=== PATIENT | male | born 1960 | race Two or more races ===

== ENCOUNTER 2018-06-18 18:41 | Inpatient (IN) | payer BC ==
[2018-06-18 20:23] VITALS: BMI 26.6
--- NOTE | 2018-06-18 22:34 | HP ---
CIWA Score Nausea/Vomitin-Mild Nausea/No Vomiting Muscle Tremors: 4-Moderate,w/Arms Extend Anxiety: 4-Mod. Anxious/Guarded Agitation: 1-Slight > Activity Paroxysmal Sweats: 1-Minimal Palms Moist Orientation: 0-Oriented Tacttile Disturbances: 0-None Auditory Disturbances: 0-None Visual Disturbances: 0-None Headache: 5-Severe CIWA-Ar Total Score: 16 - Admission Criteria OASAS Guidelines: Admission for Medically Managed Detox: Requires at least one of the followin. CIWA greater than 12 2. Seizures within the past 24 hours 3. Delirium tremens within the past 24 hours 4. Hallucinations within the past 24 hours 5. Acute intervention needed for co occurring medical disorder 6. Acute intervention needed for co occurring psychiatric disorder 7. Severe withdrawal that cannot be handled at a lower level of care (continued vomiting, continued diarrhea, abnormal vital signs) requiring intravenous medication and/or fluids 8. Admission ROS S - [facility] Chief Complaint: Alcohol withdrawal symptoms Allergies/Adverse Reactions: Allergies Allergy/AdvReac Type Severity Reaction Status Date / Time No Known Allergies Allergy Verified 06/18/18 21:02 History of Present Illness: 58 years old male with a long history of alcohol dependence is seeking admission to detox. This is his first admission to [facility]. He reports 1 year of sobriety. He reports history of depression and anxiety. He denies suicide attempt and suicidal ideation at this time. Exam Limitations: No Limitations - Ebola screening Have you traveled outside of the country in the last 21 days: No (N) Have you had contact with anyone from an Ebola affected area: No Have you been sick,other than usual withdrawal symptoms: No Do you have a fever: No - Review of Systems Constitutional: Chills, Malaise, Night Sweats, Changes in sleep EENT: reports: No Symptoms Reported Respiratory: reports: No Symptoms reported Cardiac: reports: No Symptoms Reported GI: reports: Poor Appetite, Poor Fluid Intake, Abdominal cramping : reports: No Symptoms Reported Musculoskeletal: reports: Back Pain, Joint Pain, Muscle Pain Integumentary: reports: Dryness, Flushing Neuro: reports: Headache, Tremors Endocrine: reports: No Symptoms Reported Hematology: reports: No Symptoms Reported Psychiatric: reports: Orientated x3, Agitated, Anxious, Depressed Other Systems: Reviewed and Negative Patient History - Patient Medical History Hx Asthma: No Hx Chronic Obstructive Pulmonary Disease (COPD): No Hx Cancer: No Hx Cardiac Disorders: No Hx Congestive Heart Failure: No Hx Hypertension: No Hx Hypercholesterolemia: No Hx Pacemaker: No HX Cerebrovascular Accident: No Hx Seizures: No Hx Dementia: No Hx Diabetes: No Hx Gastrointestinal Disorders: No Hx Genitourinary Disorders: No Hx Sexually Transmitted Disorders: No Hx Renal Disease (ESRD): No Hx Thyroid Disease: No Hx Human Immunodeficiency Virus (HIV): No (Never tested) Hx Hepatitis C: No Hx Depression: No Hx Suicide Attempt: No (Denies suicidal ideation at this tme) Hx Bipolar Disorder: No Hx Schizophrenia: No - Patient Surgical History Past Surgical History: No Hx Neurologic Surgery: No Hx Cataract Extraction: No Hx Cardiac Surgery: No Hx Lung Surgery: No Hx Breast Surgery: No Hx Breast Biopsy: No Hx Abdominal Surgery: No Hx Appendectomy: No Hx Cholecystectomy: No Hx Genitourinary Surgery: No Hx Section: No Hx Orthopedic Surgery: No Anesthesia Reaction: No - PPD History Previous Implant?: Yes Documented Results: Positive w/o proof PPD to be Administered?: Yes - Reproductive History Patient is a Female of Child Bearing Age (11 -55 yrs old): No (Male) - Smoking Cessation Smoking history: Current every day smoker Have you smoked in the past 12 months: No Aproximately how many cigarettes per day: 20 Hx Chewing Tobacco Use: No Initiated information on smoking cessation: Yes 'Breaking Loose' booklet given: 06/18/18 - Substance & Tx. History Hx Alcohol Use: Yes Hx Substance Use: No Substance Use Type: Alcohol Hx Substance [facility] - Substances Abused Alcohol Route: Oral Frequency: Daily Amount used: LIQUOR- 1 PINT, BEER- 2 SIX PACK Age of first use: 32 Date of Last Use: 06/18/18 Family Disease History - Family Disease History Family History: Denies Admission Physical Exam BHS - Vital Signs Vital Signs: Vital Signs - 24 hr 06/18/18 20:21 Temperature 96.9 F L Pulse Rate 110 H Respiratory 18 Rate Blood Pressure 140/80 - Physical General Appearance: Yes: Severe Distress, Tremorous, Irritable, Sweating, Anxious HEENTM: Yes: EOMI, Normal ENT Inspection, Normocephalic, Normal Voice, JERMAINE Respiratory: Yes: Lungs Clear, Normal Breath Sounds, No Respiratory Distress Neck: Yes: Supple Breast: Yes: Breast Exam Deferred Cardiology: Yes: Regular Rhythm, Regular Rate Abdominal: Yes: Normal Bowel Sounds, Soft Back: Yes: Normal Inspection Musculoskeletal: Yes: Back pain, Muscle Pain Extremities: Yes: Tremors Neurological: Yes: program paraprofessional II-XII NML intact, Alert, Normal Mood/Affect Integumentary: Yes: Warm - Diagnostic (1) Alcohol dependence with uncomplicated withdrawal Current Visit: Yes Status: Chronic (2) Depression Current Visit: Yes Status: Chronic Qualifiers: Depression Type: unspecified Qualified Code(s): F32.9 - Major depressive disorder, single episode, unspecified (3) Anxiety Current Visit: Yes Status: Chronic Cleared for Admission [facility] - Detox or Rehab [facility] Level of Care: Medically Managed Detox Regimen/Protocol: Librium [facility] Breath Alcohol Content Breath Alcohol Content: 0.150 Urine Drug Screen - Results Drug Screen Negative: Yes
[2018-06-18] MEDS ORDERED: NICOTINE POLACRILEX 2 MG GUM BC PRN (23:30)
[2018-06-18] MEDS ORDERED: chlordiazePOXIDE HCL 25 MG CAPSULE PO ONE (23:30)
[2018-06-18] MEDS ORDERED: P-EPHED 60MG/TRIPROLIDI 2.5MG TABLET PO PRN (23:30)
[2018-06-18] MEDS ORDERED: MAGNESIUM HYDROX 2400MG/30ML ORAL SUSPENSION 30 ML CUP PO PRN (23:30)
[2018-06-18] MEDS ORDERED: chlordiazePOXIDE HCL 25 MG CAPSULE PO PRN (23:30)
[2018-06-18] MEDS ORDERED: MENTHOL/PHENOL 1 EACH UD MM PRN (23:30)
[2018-06-18] MEDS ORDERED: MAGNESIUM CITRATE 300 ML BOTTLE PO PRN (23:30)
[2018-06-18] MEDS ORDERED: LOPERAMIDE HCL 2 MG CAPSULE PO PRN (23:30)
[2018-06-18] MEDS ORDERED: MAG HYDROX/AL HYDROX/SIMETH 30 ML UNIT-DOSE CUP PO PRN (23:30)
[2018-06-19] MEDS: chlordiazePOXIDE HCL 25 MG CAPSULE PO SCH ×5 (00:54→22:10)
[2018-06-19] MEDS: MELATONIN 5 MG TABLETS PO PRN (00:55)
[2018-06-19] MEDS: IBUPROFEN 400 MG TABLET (FP) PO PRN ×3 (00:55→18:00)
[2018-06-19] MEDS ORDERED: cloNIDine HCL 0.1 MG TABLET PO ONE (06:27)
--- NOTE | 2018-06-19 06:30 | PN ---
BHS Progress Note Note: Patient's blood pressure this morning is B/P 171/128. Patient is asymptomatic. Vital Signs Temperature 96.1 F L 06/19/18 06:26 Pulse Rate 115 H 06/18/18 23:58 Respiratory Rate 18 06/19/18 06:26 Blood Pressure 171/128 H 06/19/18 06:26 O2 Sat by Pulse Oximetry (%) Action: Clonidine 0.1mg tablet ordered
[2018-06-19 09:55] LABS: HEMOGLOBIN 14.3 GM/dL (11.7-16.9); MCH 28.9 pg (25.7-33.7); MCHC 33.2 g/dl (32.0-35.9); MEAN CELL VOLUME 87.2 fl (80-96); MEAN PLT VOLUME 7.1 fl (7.5-11.1); PLATELET COUNT 272 K/MM3 (134-434); RBC 4.93 M/mm3 (4.00-5.60); RDW 15.1 % (11.9-15.9); WHITE BLOOD COUNT 10.4 K/mm3 (4.0-10.0)
[2018-06-19 10:11] LABS: ALBUMIN 3.8 g/dl (3.4-5.0); ALK PHOS 81 U/L (45-117); ANION GAP 11 MMOL/L (8-16); BILIRUBIN,TOTAL 1.1 mg/dL (0.2-1); BLOOD UREA NITROGEN 9 mg/dL (7-18); CALCIUM 9.1 mg/dL (8.5-10.1); CHLORIDE 94 mmol/L (98-107); CO2 30 mmol/L (21-32); CREATININE 0.7 mg/dL (0.55-1.3); GLUCOSE,RANDOM 158 mg/dL (74-106); POTASSIUM 4.1 mmol/L (3.5-5.1); SGOT/AST 31 U/L (15-37); SGPT/ALT 37 U/L (13-61); SODIUM 136 mmol/L (136-145); TOT PROT 7.4 g/dl (6.4-8.2)
[2018-06-19] MEDS: PRENATAL VITAMINS W/ FOLIC ACID TABLET (FP) PO SCH (10:13)
[2018-06-19] MEDS: NICOTINE 14 MG/24 HOURS TOPICAL PATCH TD SCH (10:14)
[2018-06-19] MEDS: guaiFENesin/D-METHORPHAN HB 10 ML UNIT-DOSE CUPS PO PRN (10:14)
[2018-06-19] MEDS: ACETAMINOPHEN 325 MG TABLET (FP) PO PRN (10:15)
--- NOTE | 2018-06-19 17:04 | EKG ---
Test Reason : Blood Pressure : / mmHG Vent. Rate : 093 BPM Atrial Rate : 093 BPM P-R Int : 156 ms QRS Dur : 086 ms QT Int : 374 ms P-R-T Axes : 059 -19 077 degrees QTc Int : 465 ms NORMAL SINUS RHYTHM POSSIBLE LEFT ATRIAL ENLARGEMENT BORDERLINE ECG Confirmed by MD ENRICO, RUBÉN ([id number]) on 06/19/2018 5:03:52 PM Referred By: Confirmed By:RUBÉN WESTON MD
[2018-06-19] MEDS: THIAMINE HCL 100 MG TABLET (FP) PO SCH (22:09)
[2018-06-20] MEDS: IBUPROFEN 400 MG TABLET (FP) PO PRN (06:29)
[2018-06-20] MEDS: chlordiazePOXIDE HCL 25 MG CAPSULE PO SCH ×3 (06:29→17:18)
[2018-06-20] MEDS: guaiFENesin/D-METHORPHAN HB 10 ML UNIT-DOSE CUPS PO PRN (06:32)
[2018-06-20] MEDS ORDERED: LIDOCAINE 5% TOPICAL PATCH TP SCH (10:00)
[2018-06-20] MEDS: PRENATAL VITAMINS W/ FOLIC ACID TABLET (FP) PO SCH (10:04)
[2018-06-20] MEDS: NICOTINE 14 MG/24 HOURS TOPICAL PATCH TD SCH (10:04)
--- NOTE | 2018-06-20 10:29 | PN ---
S CIWA - CIWA Score Nausea/Vomitin-No Nausea/No Vomiting Muscle Tremors: 4-Moderate,w/Arms Extend Anxiety: 4-Mod. Anxious/Guarded Agitation: 4-Moderately Restless Paroxysmal Sweats: 3 Orientation: 0-Oriented Tacttile Disturbances: 0-None Auditory Disturbances: 0-None Visual Disturbances: 0-None Headache: 0-None Present CIWA-Ar Total Score: 15 BHS Progress Note (SOAP) Subjective: body aches sweats shakes interrupted sleep Objective: 10:26 Vital Signs - 24 hr 06/19/18 06/19/18 06/19/18 13:12 17:25 21:25 Temperature 97.0 F L 97.9 F 98.4 F Pulse Rate 106 H 95 H 97 H Respiratory 18 18 20 Rate Blood Pressure 142/78 148/95 131/81 06/20/18 06/20/18 06/20/18 00:30 03:30 07:10 Temperature 97.3 F L Pulse Rate 93 H Respiratory 18 19 20 Rate Blood Pressure 122/60 06/20/18 09:51 Temperature 98.6 F Pulse Rate 100 H Respiratory 18 Rate Blood Pressure 128/81 Laboratory Tests 06/19/18 06/19/18 06/19/18 07:00 07:00 07:00 WBC 10.4 H RBC 4.93 Hgb 14.3 Hct 43.0 MCV 87.2 MCH 28.9 MCHC 33.2 RDW 15.1 Plt Count 272 MPV 7.1 L Sodium 136 Potassium 4.1 Chloride 94 L Carbon Dioxide 30 Anion Gap 11 BUN 9 Creatinine 0.7 Creat Clearance w eGFR > 60 Random Glucose 158 H Calcium 9.1 Total Bilirubin 1.1 H AST 31 ALT 37 Alkaline Phosphatase 81 Total Protein 7.4 Albumin 3.8 RPR Titer Nonreactive aaox3 ambulating no acute distress Assessment: 06/20/18 10:28 withdrawal sx Plan: continue detox increase fluids motrin prn lidocaine patch daily
--- NOTE | 2018-06-20 10:31 | PN ---
S CIWA - CIWA Score Nausea/Vomitin-No Nausea/No Vomiting Muscle Tremors: 3 Anxiety: 2 Agitation: 2 Paroxysmal Sweats: 2 Orientation: 0-Oriented Tacttile Disturbances: 0-None Auditory Disturbances: 0-None Visual Disturbances: 0-None Headache: 0-None Present CIWA-Ar Total Score: 9 S Progress Note (SOAP) Subjective: little sweats low back pain i need a soft diet i dont have my dentures Objective: 06/20/18 10:30 Vital Signs Temperature 98.6 F 06/20/18 09:51 Pulse Rate 100 H 06/20/18 09:51 Respiratory Rate 18 06/20/18 09:51 Blood Pressure 128/81 06/20/18 09:51 O2 Sat by Pulse Oximetry (%) Laboratory Tests 06/19/18 06/19/18 06/19/18 07:00 07:00 07:00 WBC 10.4 H RBC 4.93 Hgb 14.3 Hct 43.0 MCV 87.2 MCH 28.9 MCHC 33.2 RDW 15.1 Plt Count 272 MPV 7.1 L Sodium 136 Potassium 4.1 Chloride 94 L Carbon Dioxide 30 Anion Gap 11 BUN 9 Creatinine 0.7 Creat Clearance w eGFR > 60 Random Glucose 158 H Calcium 9.1 Total Bilirubin 1.1 H AST 31 ALT 37 Alkaline Phosphatase 81 Total Protein 7.4 Albumin 3.8 RPR Titer Nonreactive aaox3 ambulating no acute distress Assessment: 06/20/18 10:30 mild withdrawal sx Plan: continue detox regimen reduced; pt is being d/c tomorrow.
[2018-06-20 15:27] LABS: URINE APPEARANCE CLEAR; URINE BILIRUBIN NEGATIVE (<2.0 mg/dL); URINE COLOR YELLOW; URINE GLUCOSE (UA) 1+ (NEGATIVE); URINE KETONE NEGATIVE (NEGATIVE); URINE LEUK ESTERASE NEGATIVE (NEGATIVE); URINE NITRITE NEGATIVE (NEGATIVE); URINE PROTEIN 1+ (NEGATIVE); URINE UROBILINOGEN NEGATIVE mg/dL (0.2-1.0)
[2018-06-20 16:03] LABS: URINE HYALINE CAST 3 /lpf
[2018-06-20] MEDS: IBUPROFEN 600 MG TABLET (FP) PO PRN (17:18)
[2018-06-20] MEDS ORDERED: LIDOCAINE PATCH REMOVAL MC SCH (22:00)
[2018-06-20] MEDS: chlordiazePOXIDE 5 MG CAPSULE PO SCH (22:06)
[2018-06-20] MEDS: ACETAMINOPHEN 325 MG TABLET (FP) PO PRN (22:07)
[2018-06-20] MEDS: THIAMINE HCL 100 MG TABLET (FP) PO SCH (22:08)
[2018-06-20] MEDS: MELATONIN 5 MG TABLETS PO PRN (22:09)
[2018-06-21] MEDS: chlordiazePOXIDE 5 MG CAPSULE PO SCH (05:44)
[2018-06-21] MEDS: IBUPROFEN 600 MG TABLET (FP) PO PRN (05:46)
--- NOTE | 2018-06-21 06:16 | PN ---
[facility] Progress Note Note: SEEN FOR REPORTED FALL. CLIENT STATES HE STARTED COUGHING AND BECAME DIZZY AND LOST HIS BALANCE, FALLING BACKWARDS. HE IS NOT SURE IF HE HIT HIS HEAD. DENIES LOC, PAIN, SOB, C.P., HEADACHES, VISUAL DISTURBANCES, N/V. CLIENT SEEN LYING IN BED A/O X3 NAD HEENT- NCAT, PEERLA, EOMI SKIN- INTACT NO VISIBLE INJURIES BACK- NL INSPECTION EXTREMITIES- FROM W/O LIMITATIONS OR INJURY Last Vital Signs Temp Pulse Resp BP Pulse Ox 96.8 F L 86 18 128/84 06/21/18 06:00 06/21/18 06:00 06/21/18 06:00 06/21/18 06:00 BGM-284 MG/DL S/P FALL, UNSTEADY GAIT, HX/O DM PE WNL- CLIENT DECLINES TRANSFER TO ER FOR HEAD CT. RISK D/W CLIENT TO INCLUDE BLEEDING IN THE BRAIN AND POSSIBLE . CLIENT VERABLIZED UNDERSTANDING. STATES HE WILL F/U WITH PMD AT [facility] AFTER DC TODAY. HIS BGM IS ELEVATED. CLIENT ADMITS TO HX/O DM AND IS TAKING INSULIN AT HOME. INITIALLY DENYING ON ADMISSION. HE STATES HE WILL TAKE CARE OF HIS BGM ONCE HE GETS HOME. PRESENTLY HE IS ASYMPTOMATIC. UNSTEADY GAIT NOTED; REQUESTING CANE FOR ASSIST WITH AMBULATION
[2018-06-21] MEDS: ACETAMINOPHEN 325 MG TABLET (FP) PO PRN (08:51)
--- NOTE | 2018-06-21 08:54 | PN ---
[facility] Progress Note Note: pt is AAOx3, ambulating safely with cane, denies any LOC, no dizziness, no issues. pt was made aware of his high BGM and states he will take his medication and follow up with his PCP at [facility]. Pt is being d/c today, car service arranged and picking up pt this am.
[2018-06-21 09:05] VITALS: BP 121/75; PULSE 93; TEMP 98.2
[2018-06-21] MEDS ORDERED: chlordiazePOXIDE HCL 10 MG CAPSULE PO SCH (23:00)
== END 2018-06-21 09:05 | disposition home or self-care (01) | DRG 775 ==
LOC: YASAS 18:41 → Y6N 23:32
PROC: HZ2ZZZZ Detoxification Services for Substance Abuse Treatment (ICD-10-PCS; principal; 2018-06-18)
DX: F10.230 Alcohol dependence with withdrawal, uncomplicated (principal); F41.9 Anxiety disorder, unspecified; F32.9 Major depressive disorder, single episode, unspecified; E11.65 Type 2 diabetes mellitus with hyperglycemia; Z79.4 Long term (current) use of insulin; Z91.81 History of falling; R26.89 Other abnormalities of gait and mobility; Z99.89 Dependence on other enabling machines and devices
CPT/HCPCS: 36415; 71046-TC-FY; 80053; 81003; 81015; 82962; 85027; 86593; 93005; 93010; J0735

== ENCOUNTER 2018-09-18 11:03 | Inpatient (IN) | payer OTHER ==
[2018-09-18 12:52] VITALS: BMI 22.6
--- NOTE | 2018-09-18 13:43 | HP ---
CIWA Score Nausea/Vomitin-Int. Nausea w/Dry Heave Muscle Tremors: 4-Moderate,w/Arms Extend Anxiety: 4-Mod. Anxious/Guarded Agitation: 0-Normal Activity Paroxysmal Sweats: 3 Orientation: 0-Oriented Tacttile Disturbances: 0-None Auditory Disturbances: 2-Mild Harshness/Frighten Visual Disturbances: 0-None Headache: 4-Moderately Severe CIWA-Ar Total Score: 21 - Admission Criteria OASAS Guidelines: Admission for Medically Managed Detox: Requires at least one of the followin. CIWA greater than 12 2. Seizures within the past 24 hours 3. Delirium tremens within the past 24 hours 4. Hallucinations within the past 24 hours 5. Acute intervention needed for co occurring medical disorder 6. Acute intervention needed for co occurring psychiatric disorder 7. Severe withdrawal that cannot be handled at a lower level of care (continued vomiting, continued diarrhea, abnormal vital signs) requiring intravenous medication and/or fluids 8. Patient presents the following: CIWA greater than 12 Admission Criteria Met: Admission criteria met Admission ROS [facility] Allergies/Adverse Reactions: Allergies Allergy/AdvReac Type Severity Reaction Status Date / Time No Known Allergies Allergy Verified 09/20/18 01:20 History of Present Illness: patient here requesting detox from etoh use, reports 12 beers/day since age 24 , intermittent sobriety , longest 3 years after detox , most recently sober 1 year ago , reports he drinks " around the clock " , + seizures in withdrawal w/ fall and rib frx 3 mo ago , states went to hospital in the [place] , denies driving currently , latest drove 6 mo ago , denies driving under the influence. Latest use this morning , current symptoms as above , reports blackouts and tremors if not drinking . denies illicits tobacco : 6-8 cigs/day PMHX : DM , HTN , heart surgery 2 yrs ago w/ stenting 1 yr ago went to [facility] then sent to [facility] , intermittent shortness of breath w/ exertion " for a long time " , insomnia , using cane for stability of balance " if I fall again , I broke the ribs " . upon further questioning , pt states he was in hospital in [facility] [place] [facility] " 2 days ago because " I wasn't feeling well " states CXR , BW and EKG were done . Pt further states he has not taken his meds in several months due to ETOH use . PSHX : as above SHx : lives alone , unemployed , on SSD x 4 months Exam Limitations: Clinical Condition, Intoxication - Ebola screening Have you traveled outside of the country in the last 21 days: No Have you had contact with anyone from an Ebola affected area: No Have you been sick,other than usual withdrawal symptoms: No - Review of Systems Constitutional: See HPI EENT: reports: See HPI, Other (reading glasses, denies dysphagia) Respiratory: reports: See HPI, Cough (states x 3 mo, saw PCP was rx Robitussin ), SOB with Exertion Cardiac: reports: No Symptoms Reported GI: reports: See HPI, Nausea : reports: No Symptoms Reported Musculoskeletal: reports: No Symptoms Reported Neuro: reports: No Symptoms reported Endocrine: reports: See HPI Psychiatric: reports: Orientated x3, Anxious Patient History - Patient Medical History Hx Asthma: No Hx Chronic Obstructive Pulmonary Disease (COPD): No Hx Cancer: No Hx Cardiac Disorders: No Hx Congestive Heart Failure: No Hx Hypertension: No Hx Hypercholesterolemia: No Hx Pacemaker: No HX Cerebrovascular Accident: No Hx Seizures: No Hx Dementia: No Hx Diabetes: No Hx Gastrointestinal Disorders: No Hx Genitourinary Disorders: No Hx Sexually Transmitted Disorders: No Hx Renal Disease (ESRD): No Hx Thyroid Disease: No Hx Human Immunodeficiency Virus (HIV): No (Never tested) Hx Hepatitis C: No Hx Depression: No Hx Suicide Attempt: No (Denies suicidal ideation at this tme) Hx Bipolar Disorder: No Hx Schizophrenia: No - Patient Surgical History Past Surgical History: No Hx Neurologic Surgery: No Hx Cataract Extraction: No Hx Cardiac Surgery: No Hx Lung Surgery: No Hx Breast Surgery: No Hx Breast Biopsy: No Hx Abdominal Surgery: No Hx Appendectomy: No Hx Cholecystectomy: No Hx Genitourinary Surgery: No Hx Section: No Hx Orthopedic Surgery: No Anesthesia Reaction: No - Smoking Cessation Smoking history: Current every day smoker Have you smoked in the past 12 months: No Aproximately how many cigarettes per day: 20 Hx Chewing Tobacco Use: No Initiated information on smoking cessation: No - Substances Abused Alcohol-beer Route: Oral Frequency: Daily Amount used: 2-6 pks. Age of first use: 24 Date of Last Use: 09/18/18 Family Disease History - Family Disease History Family Disease History: Diabetes: Mother Admission Physical Exam [facility] - Vital Signs Vital Signs: Vital Signs - 24 hr 09/18/18 12:44 Temperature 97.9 F Pulse Rate 124 H Respiratory 20 Rate Blood Pressure 119/75 - Physical General Appearance: Yes: Disheveled, Moderate Distress, Intoxicated, Anxious HEENTM: Yes: EOMI, Hearing grossly Normal, Normocephalic, Normal Voice Respiratory: Yes: Lungs Clear, Normal Breath Sounds, Rapid RR, Other (right lower lateral ribcage tenderness with palpation) Neck: Yes: No masses,lesions,Nodules, Trachea in good position Cardiology: Yes: Regular Rhythm, Regular Rate, S1, S2, Tachycardia Abdominal: Yes: Normal Bowel Sounds, Non Tender, Soft Genitourinary: Yes: Within Normal Limits Back: Yes: Normal Inspection Musculoskeletal: Yes: Other (staggering gait , using cane for ambulation and stability) Extremities: Yes: Tremors Neurological: Yes: Motor Strength 5/5 Integumentary: Yes: Normal Color, Warm - Diagnostic (1) Tobacco dependence Current Visit: Yes Status: Acute (2) Alcohol dependence with uncomplicated withdrawal Current Visit: Yes Status: Acute [facility] Breath Alcohol Content Breath Alcohol Content: 0.031 Urine Drug Screen - Results Drug Screen Negative: No Urine Drug Screen Results: BZO-Benzodiazepines Inpatient Rehab Admission - Rehab Decision to Admit Inpatient rehab admission?: No
[2018-09-18] MEDS ORDERED: NICOTINE POLACRILEX 2 MG GUM BUC PRN (13:52)
[2018-09-18] MEDS ORDERED: LOPERAMIDE HCL 2 MG CAPSULE PO PRN (13:52)
[2018-09-18] MEDS ORDERED: MAG HYDROX/AL HYDROX/SIMETH 30 ML UNIT-DOSE CUP PO PRN (13:52)
[2018-09-18] MEDS ORDERED: MENTHOL/PHENOL 1 EACH UD MM PRN (13:52)
[2018-09-18] MEDS ORDERED: guaiFENesin/D-METHORPHAN HB 10 ML UNIT-DOSE CUPS PO PRN (13:52)
[2018-09-18] MEDS ORDERED: MAGNESIUM HYDROX 2400MG/30ML ORAL SUSPENSION 30 ML CUP PO PRN (13:52)
[2018-09-18] MEDS ORDERED: P-EPHED 60MG/TRIPROLIDI 2.5MG TABLET PO PRN (13:52)
[2018-09-18] MEDS ORDERED: chlordiazePOXIDE HCL 25 MG CAPSULE PO PRN (13:52)
[2018-09-18] MEDS ORDERED: MAGNESIUM CITRATE 300 ML BOTTLE PO PRN (13:52)
[2018-09-18] MEDS ORDERED: ACETAMINOPHEN 325 MG TABLET (FP) PO PRN (13:52)
[2018-09-18] MEDS: INSULIN SLIDING SCALE (NOVOLOG) 1 VIAL SQ SCH ×2 (16:42→21:46)
[2018-09-18] MEDS: chlordiazePOXIDE HCL 25 MG CAPSULE PO SCH ×2 (17:16→22:43)
[2018-09-18] MEDS: ASPIRIN 81 MG CHEWABLE TABLETS PO SCH (17:16)
[2018-09-18] MEDS: CLOPIDOGREL BISULFATE 75 MG TABLET (FP) PO SCH (17:16)
[2018-09-18] MEDS ORDERED: ATORVASTATIN CA 80 MG TABLET (FP) PO SCH (22:00)
[2018-09-18] MEDS: THIAMINE HCL 100 MG TABLET (FP) PO SCH (22:43)
[2018-09-18] MEDS: traZODone HCL 50 MG TABLET (FP) PO SCH (22:43)
[2018-09-19] MEDS: chlordiazePOXIDE HCL 25 MG CAPSULE PO SCH ×2 (06:19→10:41)
--- NOTE | 2018-09-19 07:42 | PN ---
[facility] Progress Note Note: LATE ENTRY- INFORMED CLIENT WAS FOUND ON FLOOR AT 3:50 AM. CLIENT STATES HE DID NOT FALL. "I HAVE A NERVOUS CONDITION" "MY LEGS GOT SHAKY SO I SAT ON THE FLOOR". CLIENT DENIES DIZZINESS, HEAD INJURY, SOB, C.P., VISUAL DISTURBANCES. Last Vital Signs Temp Pulse Resp BP Pulse Ox 95.9 F L 109 H 18 108/72 09/19/18 03:55 09/19/18 03:55 09/19/18 03:55 09/19/18 03:55 SEEN LYING IN BED A/O X3 NAD ASKING FOR SOMETHING TO EAT; CANE NOTED AT BEDSIDE HEENT- NCAT, PERRLA, EOMI CV-RRR SKIN- INTAct EXTREMITIES- FROM W/O LIMITATION S/P UNWITNESSED FALL P- FALL PRECAUTION CLIENT REFUSING HEAD CT- RISK INVOLVED D/W CLIENT TO INCLUDE INTERNALLY BLEEDING , LOC. CLIENT VERBALIZED UNDERSTANDING AND STATES " I DID NOT HIT MY HEAD" CONTINUE TO MONITOR CLINICALLY
[2018-09-19] MEDS: INSULIN SLIDING SCALE (NOVOLOG) 1 VIAL SQ SCH ×3 (08:20→17:38)
[2018-09-19 10:40] LABS: HEMATOCRIT 46.4 % (35.4-49); HEMOGLOBIN 16.4 GM/dL (11.7-16.9); MCH 31.3 pg (25.7-33.7); MCHC 35.3 g/dl (32.0-35.9); MEAN CELL VOLUME 88.7 fl (80-96); MEAN PLT VOLUME 9.1 fl (7.5-11.1); PLATELET COUNT 95 K/MM3 (134-434); RBC 5.22 M/mm3 (4.00-5.60); WHITE BLOOD COUNT 4.3 K/mm3 (4.0-10.0)
[2018-09-19] MEDS: ASPIRIN 81 MG CHEWABLE TABLETS PO SCH (10:40)
[2018-09-19] MEDS: CLOPIDOGREL BISULFATE 75 MG TABLET (FP) PO SCH (10:40)
[2018-09-19] MEDS: PRENATAL VITAMINS W/ FOLIC ACID TABLET (FP) PO SCH (10:40)
[2018-09-19 11:12] LABS: ALBUMIN 3.1 g/dl (3.4-5.0); ALK PHOS 133 U/L (45-117); ANION GAP 11 MMOL/L (8-16); BILIRUBIN,TOTAL 2.1 mg/dL (0.2-1); BLOOD UREA NITROGEN 10 mg/dL (7-18); CALCIUM 8.4 mg/dL (8.5-10.1); CHLORIDE 92 mmol/L (98-107); CO2 28 mmol/L (21-32); CREATININE 0.9 mg/dL (0.55-1.3); GLUCOSE,RANDOM 161 mg/dL (74-106); SGOT/AST 416 U/L (15-37); SGPT/ALT 194 U/L (13-61); SODIUM 131 mmol/L (136-145); TOT PROT 6.9 g/dl (6.4-8.2)
[2018-09-19] MEDS ORDERED: POTASSIUM CHLORIDE ORAL LIQUID 20 MEQ/15 ML PO ONE (11:18)
--- NOTE | 2018-09-19 12:46 | EKG ---
Test Reason : Blood Pressure : / mmHG Vent. Rate : 103 BPM Atrial Rate : 103 BPM P-R Int : 158 ms QRS Dur : 084 ms QT Int : 372 ms P-R-T Axes : 043 -04 058 degrees QTc Int : 487 ms SINUS TACHYCARDIA SEPTAL INFARCT , AGE UNDETERMINED ABNORMAL ECG WHEN COMPARED WITH ECG OF 19-JUN-2018 09:36, SEPTAL INFARCT IS NOW PRESENT Confirmed by KATY AMADO, STEPHANIE ([id number]) on 09/19/2018 12:46:14 PM Referred By: MARY METZGER Confirmed By:STEPHANIE BURNS MD
[2018-09-19] MEDS ORDERED: LORazepam 1 MG TABLET PO PRN (13:35)
--- NOTE | 2018-09-19 13:49 | PN ---
S CIWA - CIWA Score Nausea/Vomitin-Mild Nausea/No Vomiting Muscle Tremors: 2 Anxiety: 2 Agitation: 0-Normal Activity Paroxysmal Sweats: 1-Minimal Palms Moist Orientation: 1-Uncertain about Date Tacttile Disturbances: 0-None Auditory Disturbances: 0-None Visual Disturbances: 0-None Headache: 1-Very Mild CIWA-Ar Total Score: 8 BHS Progress Note (SOAP) Subjective: S: pt states he feels weak, admitted yesterday for alcohol detox O: Vital Signs - 24 hr 09/18/18 09/18/18 09/19/18 17:30 22:31 00:29 Temperature 96.7 F L 98.7 F Pulse Rate 131 H 112 H Respiratory 16 16 18 Rate Blood Pressure 145/99 113/67 09/19/18 09/19/18 09/19/18 03:30 03:50 03:55 Temperature 95.9 F L 95.9 F L Pulse Rate 109 H 109 H Respiratory 18 18 18 Rate Blood Pressure 108/72 108/72 09/19/18 09/19/18 09/19/18 05:50 06:00 08:50 Temperature 98.9 F 98.9 F 98.0 F Pulse Rate 75 75 99 H Respiratory 18 18 18 Rate Blood Pressure 111/76 111/76 104/72 09/19/18 09/19/18 09/19/18 09:27 09:50 11:50 Temperature 97.9 F 97.6 F 97.0 F L Pulse Rate 84 111 H 105 H Respiratory 18 20 20 Rate Blood Pressure 95/64 74/57 L 89/53 L 09/19/18 13:38 Temperature 97.5 F L Pulse Rate 113 H Respiratory 20 Rate Blood Pressure 100/57 L Laboratory Tests 09/18/18 09/19/18 09/19/18 16:28 03:50 07:00 WBC 4.3 RBC 5.22 Hgb 16.4 Hct 46.4 MCV 88.7 MCH 31.3 MCHC 35.3 RDW 15.0 Plt Count 95 L D MPV 9.1 D Platelet Comment No clumping noted Sodium Potassium Chloride Carbon Dioxide Anion Gap BUN Creatinine Creat Clearance w eGFR POC Glucometer 170 230 Random Glucose Calcium Total Bilirubin AST ALT Alkaline Phosphatase Total Protein Albumin RPR Titer 03/06/19 03/06/19 03/06/19 07:00 07:00 08:14 WBC RBC Hgb Hct MCV MCH MCHC RDW Plt Count MPV Platelet Comment Sodium 131 L Potassium 3.0 L Chloride 92 L Carbon Dioxide 28 Anion Gap 11 BUN 10 Creatinine 0.9 Creat Clearance w eGFR > 60 POC Glucometer 204 Random Glucose 161 H Calcium 8.4 L Total Bilirubin 2.1 H AST 416 H ALT 194 H Alkaline Phosphatase 133 H Total Protein 6.9 Albumin 3.1 L RPR Titer Nonreactive a/p: alcohol detox alcoholic hepatitis- with increased liver enzymes- will change librium to ativan , repeat labs tomorrow low K- replete, recheck lab vitamins, f/s and SS insulin coverage for DM
[2018-09-19] MEDS ORDERED: chlordiazePOXIDE HCL 25 MG CAPSULE PO SCH (17:00)
[2018-09-19] MEDS ORDERED: LORazepam 2 MG TABLET PO SCH (17:00)
[2018-09-19] MEDS: CYANOCOBALAMIN 1,000 MCG TABLET (FP) PO SCH (17:00)
[2018-09-19] MEDS: LORazepam 1 MG TABLET PO SCH ×2 (17:38→22:21)
[2018-09-19] MEDS: MELATONIN 5 MG TABLETS PO PRN (22:21)
[2018-09-19] MEDS: traZODone HCL 50 MG TABLET (FP) PO SCH (22:21)
[2018-09-19] MEDS: THIAMINE HCL 100 MG TABLET (FP) PO SCH (22:21)
--- NOTE | 2018-09-19 23:27 | PN ---
[facility] Progress Note Note: Patient was found on the floor in front of his room ([address]). He reports that he was ambulating and fell. He ambulates with a cane. The fall was unwitnessed. Fall protocol #1 initiated. Patient is alert and oriented to person, place and time. No injury, laceration, swelling, redness and bruises noted or reported. Denies pain at this time. Patient is being transferred to ER for head CT and evaluation. Endorsed to DR. Burns. Vital Signs - 8 hr 09/19/18 09/19/18 09/19/18 18:13 19:50 23:15 Temperature 97.8 F 97.8 F 98.2 F Pulse Rate 91 H 91 H 117 H Respiratory 17 17 18 Rate Blood Pressure 123/84 123/84 78/51 L Action: Transfer patient to ER for evaluation
[2018-09-20] MEDS: LORazepam 1 MG TABLET PO SCH ×2 (06:08→11:21)
[2018-09-20] MEDS: INSULIN SLIDING SCALE (NOVOLOG) 1 VIAL SQ SCH ×2 (06:08→17:31)
[2018-09-20] MEDS: PRENATAL VITAMINS W/ FOLIC ACID TABLET (FP) PO SCH (09:47)
[2018-09-20] MEDS: CLOPIDOGREL BISULFATE 75 MG TABLET (FP) PO SCH (09:47)
[2018-09-20] MEDS: ASPIRIN 81 MG CHEWABLE TABLETS PO SCH (09:47)
[2018-09-20] MEDS: CYANOCOBALAMIN 1,000 MCG TABLET (FP) PO SCH (10:21)
--- NOTE | 2018-09-20 11:47 | PN ---
S CIWA - CIWA Score Nausea/Vomitin-No Nausea/No Vomiting Muscle Tremors: 1-None Visible, but [place] Anxiety: 1-Mildly Anxious Agitation: 1-Slight > Activity Paroxysmal Sweats: 1-Minimal Palms Moist Orientation: 0-Oriented Tacttile Disturbances: 0-None Auditory Disturbances: 0-None Visual Disturbances: 0-None Headache: 1-Very Mild CIWA-Ar Total Score: 5 [facility] Progress Note (SOAP) Subjective: tremor sweating headaches patient unwitnessed fall treated in ER medically cleared return for detox continue plavix Objective: 09/20/18 11:47 Vital Signs Temperature 97.3 F L 09/20/18 11:15 Pulse Rate 101 H 09/20/18 11:15 Respiratory Rate 18 09/20/18 11:15 Blood Pressure 129/77 09/20/18 11:15 O2 Sat by Pulse Oximetry (%) Laboratory Last Values WBC 4.3 K/mm3 (4.0-10.0) 09/19/18 07:00 RBC 5.22 M/mm3 (4.00-5.60) 09/19/18 07:00 Hgb 16.4 GM/dL (11.7-16.9) 09/19/18 07:00 Hct 46.4 % (35.4-49) 09/19/18 07:00 MCV 88.7 fl (80-96) 09/19/18 07:00 MCH 31.3 pg (25.7-33.7) 09/19/18 07:00 MCHC 35.3 g/dl (32.0-35.9) 09/19/18 07:00 RDW 15.0 % (11.9-15.9) 09/19/18 07:00 Plt Count 95 K/MM3 (134-434) L D 09/19/18 07:00 MPV 9.1 fl (7.5-11.1) D 09/19/18 07:00 Platelet Comment No clumping noted 09/19/18 07:00 Sodium 131 mmol/L (136-145) L 09/19/18 07:00 Potassium 3.0 mmol/L (3.5-5.1) L 09/19/18 07:00 Chloride 92 mmol/L (98-107) L 09/19/18 07:00 Carbon Dioxide 28 mmol/L (21-32) 09/19/18 07:00 Anion Gap 11 MMOL/L (8-16) 09/19/18 07:00 BUN 10 mg/dL (7-18) 09/19/18 07:00 Creatinine 0.9 mg/dL (0.55-1.3) 09/19/18 07:00 Creat Clearance w eGFR > 60 (>60) 09/19/18 07:00 POC Glucometer 197 UNITS (80-120) 09/20/18 06:06 Random Glucose 161 mg/dL (74-106) H 09/19/18 07:00 Calcium 8.4 mg/dL (8.5-10.1) L 09/19/18 07:00 Total Bilirubin 2.1 mg/dL (0.2-1) H 09/19/18 07:00 AST 416 U/L (15-37) H 09/19/18 07:00 ALT 194 U/L (13-61) H 09/19/18 07:00 Alkaline Phosphatase 133 U/L (45-117) H 09/19/18 07:00 Total Protein 6.9 g/dl (6.4-8.2) 09/19/18 07:00 Albumin 3.1 g/dl (3.4-5.0) L 09/19/18 07:00 RPR Titer Nonreactive (NONREACTIVE) 09/19/18 07:00 09/20/18 12:02 lab noted patient received K+ 40 meq 09/19/18 patient will received K+ 40 meq today repeat K+ Assessment: alcohol withdrawal sx Plan: continue detox
[2018-09-20] MEDS ORDERED: POTASSIUM CHLORIDE ORAL LIQUID 20 MEQ/15 ML PO ONE (11:49)
[2018-09-20] MEDS ORDERED: POTASSIUM CHLORIDE ORAL LIQUID 20 MEQ/15 ML PO SCH (12:00)
--- NOTE | 2018-09-20 14:05 | EKG ---
Test Reason : Blood Pressure : / mmHG Vent. Rate : 109 BPM Atrial Rate : 109 BPM P-R Int : 162 ms QRS Dur : 082 ms QT Int : 364 ms P-R-T Axes : 053 -07 062 degrees QTc Int : 490 ms SINUS TACHYCARDIA POSSIBLE LEFT ATRIAL ENLARGEMENT SEPTAL INFARCT , AGE UNDETERMINED ABNORMAL ECG WHEN COMPARED WITH ECG OF 19-JUN-2018 09:36, SEPTAL INFARCT IS NOW PRESENT NONSPECIFIC T WAVE ABNORMALITY NO LONGER EVIDENT IN ANTERIOR LEADS Confirmed by ELIA HARRINGTON MD ([id number]) on 09/20/2018 2:05:19 PM Referred By: Confirmed By:ELIA HARRINGTON MD
[2018-09-20] MEDS ORDERED: chlordiazePOXIDE 5 MG CAPSULE PO SCH (17:00)
[2018-09-20] MEDS: LORazepam 0.5 MG TABLET PO SCH ×2 (17:31→22:43)
[2018-09-20] MEDS: THIAMINE HCL 100 MG TABLET (FP) PO SCH (22:42)
[2018-09-20] MEDS: traZODone HCL 50 MG TABLET (FP) PO SCH (22:43)
--- NOTE | 2018-09-20 23:18 | PN ---
[facility] Progress Note Note: Patient is status post a fall in the hallway while standing. Fall was unwitnessed. Fall protocol # 1 initiated. Patient is refusing to go to ER for further evaluation. He signed the refusal of treatment form. Wheelchair provided by the evening or night nurse supervisor. Vital Signs - 8 hr 09/20/18 09/20/18 09/20/18 17:31 19:15 21:08 Temperature 96.9 F L 96.9 F L 95.2 F L Pulse Rate 100 H 100 H 105 H Respiratory 18 18 18 Rate Blood Pressure 140/83 140/83 106/70 09/20/18 09/20/18 09/20/18 21:50 22:00 23:50 Temperature 97.2 F L 97.2 F L 97.2 F L Pulse Rate 109 H 109 H 93 H Respiratory 18 18 18 Rate Blood Pressure 82/60 L 82/60 L 161/99 09/21/18 00:30 Temperature Pulse Rate Respiratory 18 Rate Blood Pressure Action: Close observation initiated Continue to monitor patient
[2018-09-21] MEDS: MELATONIN 5 MG TABLETS PO PRN (01:44)
[2018-09-21] MEDS: LORazepam 0.5 MG TABLET PO SCH ×3 (06:39→17:13)
[2018-09-21] MEDS ORDERED: INSULIN SLIDING SCALE (NOVOLOG) 1 VIAL SQ ONE ×2 (07:53→17:56)
[2018-09-21] MEDS: INSULIN SLIDING SCALE (NOVOLOG) 1 VIAL SQ SCH ×2 (07:54→17:50)
[2018-09-21] MEDS ORDERED: POTASSIUM CHLORIDE TABS 20 MEQ TABLET.ER (FP) PO ONE ×3 (11:14→18:00)
--- NOTE | 2018-09-21 11:26 | PN ---
[facility] Progress Note (SOAP) Subjective: Patient Reports only Fatigue today. Objective: Patient A & O X 3, OBSERVED AMBULATING ON UNIT WITH ASSISTANCE OF A CANE. 09/21/18 11:26 Vital Signs Temperature 96.2 F L 09/21/18 09:54 Pulse Rate 100 H 09/21/18 09:54 Respiratory Rate 16 09/21/18 09:54 Blood Pressure 75/54 L 09/21/18 09:54 O2 Sat by Pulse Oximetry (%) Laboratory Tests 09/18/18 09/19/18 09/19/18 16:28 03:50 07:00 WBC 4.3 RBC 5.22 Hgb 16.4 Hct 46.4 MCV 88.7 MCH 31.3 MCHC 35.3 RDW 15.0 Plt Count 95 L D MPV 9.1 D Platelet Comment No clumping noted Sodium Potassium Chloride Carbon Dioxide Anion Gap BUN Creatinine Creat Clearance w eGFR POC Glucometer 170 230 Random Glucose Calcium Total Bilirubin AST ALT Alkaline Phosphatase Total Protein Albumin RPR Titer 09/19/18 09/19/18 09/19/18 07:00 07:00 08:14 WBC RBC Hgb Hct MCV MCH MCHC RDW Plt Count MPV Platelet Comment Sodium 131 L Potassium 3.0 L Chloride 92 L Carbon Dioxide 28 Anion Gap 11 BUN 10 Creatinine 0.9 Creat Clearance w eGFR > 60 POC Glucometer 204 Random Glucose 161 H Calcium 8.4 L Total Bilirubin 2.1 H AST 416 H ALT 194 H Alkaline Phosphatase 133 H Total Protein 6.9 Albumin 3.1 L RPR Titer Nonreactive 09/19/18 09/19/18 09/20/18 17:10 23:18 06:06 WBC RBC Hgb Hct MCV MCH MCHC RDW Plt Count MPV Platelet Comment Sodium Potassium Chloride Carbon Dioxide Anion Gap BUN Creatinine Creat Clearance w eGFR POC Glucometer 323 228 197 Random Glucose Calcium Total Bilirubin AST ALT Alkaline Phosphatase Total Protein Albumin RPR Titer 09/20/18 09/21/18 16:22 06:45 WBC RBC Hgb Hct MCV MCH MCHC RDW Plt Count MPV Platelet Comment Sodium Potassium Chloride Carbon Dioxide Anion Gap BUN Creatinine Creat Clearance w eGFR POC Glucometer 286 276 Random Glucose Calcium Total Bilirubin AST ALT Alkaline Phosphatase Total Protein Albumin RPR Titer LABS NOTED. Assessment: 09/21/18 11:27 WITHDRAWAL SYMPTOMS. HYPOKALEMIA. ELEVATED LIVER ENZYMES. 09/21/18 11:32 Plan: CONTINUE DETOX. INCREASE DAILY PO FLUID INTAKE. PATIENT HAD BEEN PLACED ON 1:1 CONTINUOUS OBSERVATION FOR SAFETY LAST NIGHT BY CHINTAN ALLEN RN. PATIENT APPEARS RELATIVELY WELL AT THIS TIME, ABLE TO AMBULATE, BUT ASSISTANCE (CANE) REQUIRED. WHEELCHAIR ALSO BY BEDSIDE FOR PATIENT TO USE IF HE WISHES. PATIENT WAS IN BED SLEEPING FOR MOST OF AM THUS FAR. HOWEVER, ENCOURAGED PATIENT TO CONSUME WATER AND TO AMBULATE SLOWLY AND CAREFULLY ABOUT UNIT WHEN AMBULATING. BP WHEN JUST ASSESSED: 87/60. WILL CONTINUE TO MONITOR ON 1:1 CONTINUOUS OBSERVATION STRATUS FOR NEXT 1-2 HOURS BEFORE DETERMINATION ABOUT WHETHER OR NOT TO D/C 1:1 STATUS. DETOX ATIVAN TO BE HELD FOR TIME BEING. RE-CHECKING K LEVEL TODAY.
[2018-09-21] MEDS: PRENATAL VITAMINS W/ FOLIC ACID TABLET (FP) PO SCH (11:28)
[2018-09-21] MEDS: CLOPIDOGREL BISULFATE 75 MG TABLET (FP) PO SCH (11:28)
[2018-09-21] MEDS: CYANOCOBALAMIN 1,000 MCG TABLET (FP) PO SCH (11:28)
[2018-09-21] MEDS: ASPIRIN 81 MG CHEWABLE TABLETS PO SCH (11:28)
--- NOTE | 2018-09-21 15:35 | PN ---
[facility] Progress Note Note: AFTER FURTHER EVALUATION, PATIENT STILL APPEARS SOMEWHAT LETHARGIC AND CONTINUES TO APPEAR TO HAVE DIFFICULTY IN AMBULATION. WILL MAINTAIN PATIENT ON 1:1 CONTINUOUS OBSERVATION FOR SAFETY UNTIL TOMORROW AM , AT WHICH TIME FURTHER SUBSEQUENT EVALUATION WILL BE MADE. Karina MCKEON NP
[2018-09-21 16:06] LABS: ALBUMIN 3.3 g/dl (3.4-5.0); BILIRUBIN,DIRECT 0.4 mg/dL (0.0-0.2); BILIRUBIN,TOTAL 0.9 mg/dL (0.2-1); POTASSIUM 3.1 mmol/L (3.5-5.1); TOT PROT 7.2 g/dl (6.4-8.2)
--- NOTE | 2018-09-21 16:45 | PN ---
S Progress Note Note: RESULTS OF REPEAT K LEVEL AND HFP NOTED. K-DUR, 40 MEQ PO X 1 DOSE ORDERED FOR NOW, AND THEN AGAIN FOR TOMORROW AM. Karina MCKEON NP.
[2018-09-21] MEDS ORDERED: LORazepam 0.5 MG TABLET PO PRN (17:00)
[2018-09-21] MEDS ORDERED: chlordiazePOXIDE HCL 10 MG CAPSULE PO SCH (17:00)
[2018-09-21] MEDS ORDERED: POTASSIUM CHLORIDE TABS 20 MEQ TABLET.ER (FP) PO SCH (22:00)
[2018-09-21] MEDS: THIAMINE HCL 100 MG TABLET (FP) PO SCH (22:58)
[2018-09-21] MEDS: traZODone HCL 50 MG TABLET (FP) PO SCH (22:58)
--- NOTE | 2018-09-22 01:25 | PN ---
[facility] Progress Note Note: ASKED TO SEE CLIENT FOR A WITNESSED FALL. PER STAFF CLIENT LOST HIS BALANCE WHILE IN THE BATHROOM AND FELL BACKWARDS IN A SITTING POSITION. PER STAFF CLIENT DID NOT STRIKE HIS HEAD. CLIENT WAS ASSISTED OFF THE GROUND AND INTO HIS BED. CLIENT IS PRESENTLY ON 1:1 OBSERVATION FOR PREVIOUS FALLS. CLIENT C/O DIZZINESS. DENIES SOB, C.P. VISUAL DISTURBANCE, OR INJURIES. Vital Signs - 24 hr 09/21/18 09/21/18 09/21/18 07:50 09:35 09:50 Temperature 96.9 F L 96.0 F L 96.2 F L Pulse Rate 93 H 93 H 100 H Respiratory 18 17 16 Rate Blood Pressure 108/71 117/75 75/54 L 09/21/18 09/21/18 09/21/18 09:54 11:36 13:18 Temperature 96.2 F L 96.2 F L 97.6 F Pulse Rate 100 H 96 H 93 H Respiratory 16 16 18 Rate Blood Pressure 75/54 L 92/67 112/70 09/21/18 09/21/18 09/21/18 13:50 17:00 17:50 Temperature 98.9 F 98.6 F 97.6 F Pulse Rate 108 H 118 H 109 H Respiratory 18 18 18 Rate Blood Pressure 98/54 L 115/75 140/86 09/21/18 09/21/18 09/22/18 21:50 22:00 00:35 Temperature 97.0 F L 97.5 F L 95.4 F L Pulse Rate 103 H 68 97 H Respiratory 18 18 18 Rate Blood Pressure 92/66 111/68 135/54 L 09/22/18 09/22/18 09/22/18 02:35 03:30 04:35 Temperature 96.6 F L 96.6 F L Pulse Rate 90 101 H Respiratory 18 16 18 Rate Blood Pressure 133/80 108/72 A/O X3 NAD LYING IN BED RESTING NCAT, PERRLA LEFT ELBOW NOTED WITH SUPERFICIAL SKIN ABRASION BUT REMAINS INTACT MOVING ALL EXTREMTIES W/O DIFFICULTY BACK/ BUTTOCKS- NL INSPECTION SKIN- INTACT NO VISIBLE INJURIES EXCEPT WHAT IS NOTED ABOVE. A- S/P FALL P- FALL PROTOCOL 2 MAINTAIN 1:1 SUPERVISION CONT TO MONITOR CLINICALLY
[2018-09-22] MEDS: INSULIN SLIDING SCALE (NOVOLOG) 1 VIAL SQ SCH ×2 (06:35→17:24)
[2018-09-22] MEDS ORDERED: POTASSIUM CHLORIDE TABS 20 MEQ TABLET.ER (FP) PO ONE (07:00)
[2018-09-22] MEDS: ASPIRIN 81 MG CHEWABLE TABLETS PO SCH (11:00)
[2018-09-22] MEDS: CLOPIDOGREL BISULFATE 75 MG TABLET (FP) PO SCH (11:00)
[2018-09-22] MEDS: PRENATAL VITAMINS W/ FOLIC ACID TABLET (FP) PO SCH (11:00)
[2018-09-22] MEDS: CYANOCOBALAMIN 1,000 MCG TABLET (FP) PO SCH (11:03)
--- NOTE | 2018-09-22 15:48 | PN ---
S Progress Note (SOAP) Subjective: Patient Still Appears Lethargic. Patient also Reports Considerable Difficulty in Ambulation, even with Assistance. Patient Reports that he feels as if he needs to have "another person nearby to help him when he walks." Although Patient Yesterday indicated that he would be okay to Return to his home today after Discharge, He now asks to go to Rehab and Reports that he is quite concerned about being at home by himself. Objective: PATIENT A & O X 2 (UNCERTAIN ABOUT CURRENT DAY / DATE). IN NO ACUTE DISTRESS. 09/22/18 15:45 Vital Signs Temperature 98.5 F 09/22/18 10:35 Pulse Rate 94 H 09/22/18 10:35 Respiratory Rate 16 09/22/18 10:35 Blood Pressure 134/78 09/22/18 10:35 O2 Sat by Pulse Oximetry (%) Laboratory Tests 09/18/18 09/19/18 09/19/18 16:28 03:50 07:00 WBC 4.3 RBC 5.22 Hgb 16.4 Hct 46.4 MCV 88.7 MCH 31.3 MCHC 35.3 RDW 15.0 Plt Count 95 L D MPV 9.1 D Platelet Comment No clumping noted Sodium Potassium Chloride Carbon Dioxide Anion Gap BUN Creatinine Creat Clearance w eGFR POC Glucometer 170 230 Random Glucose Calcium Total Bilirubin Direct Bilirubin AST ALT Alkaline Phosphatase Total Protein Albumin RPR Titer 09/19/18 09/19/18 09/19/18 07:00 07:00 08:14 WBC RBC Hgb Hct MCV MCH MCHC RDW Plt Count MPV Platelet Comment Sodium 131 L Potassium 3.0 L Chloride 92 L Carbon Dioxide 28 Anion Gap 11 BUN 10 Creatinine 0.9 Creat Clearance w eGFR > 60 POC Glucometer 204 Random Glucose 161 H Calcium 8.4 L Total Bilirubin 2.1 H Direct Bilirubin AST 416 H ALT 194 H Alkaline Phosphatase 133 H Total Protein 6.9 Albumin 3.1 L RPR Titer Nonreactive 09/19/18 09/19/18 09/20/18 17:10 23:18 06:06 WBC RBC Hgb Hct MCV MCH MCHC RDW Plt Count MPV Platelet Comment Sodium Potassium Chloride Carbon Dioxide Anion Gap BUN Creatinine Creat Clearance w eGFR POC Glucometer 323 228 197 Random Glucose Calcium Total Bilirubin Direct Bilirubin AST ALT Alkaline Phosphatase Total Protein Albumin RPR Titer 09/20/18 09/21/18 09/21/18 16:22 06:45 11:45 WBC RBC Hgb Hct MCV MCH MCHC RDW Plt Count MPV Platelet Comment Sodium Potassium 3.1 L Chloride Carbon Dioxide Anion Gap BUN Creatinine Creat Clearance w eGFR POC Glucometer 286 276 Random Glucose Calcium Total Bilirubin 0.9 Direct Bilirubin 0.4 H AST 197 H ALT 158 H Alkaline Phosphatase 154 H Total Protein 7.2 Albumin 3.3 L RPR Titer 09/21/18 09/22/18 09/22/18 17:09 01:28 06:25 WBC RBC Hgb Hct MCV MCH MCHC RDW Plt Count MPV Platelet Comment Sodium Potassium Chloride Carbon Dioxide Anion Gap BUN Creatinine Creat Clearance w eGFR POC Glucometer 307 327 341 Random Glucose Calcium Total Bilirubin Direct Bilirubin AST ALT Alkaline Phosphatase Total Protein Albumin RPR Titer LABS NOTED. RESULTS OF REPEAT LIVER ENZYMES NOTED. REDUCTION IN LIVER AST, ALT, AND IN TOTAL BILIRUBIN LEVELS NOTED IN COMPARISON TO ADMISSION LEVELS. 09/22/18 15:48 Assessment: 09/22/18 15:46 WITHDRAWAL SYMPTOMS. AMBULATORY DIFFICULTY. HYPOKALEMIA. ELEVATED LIVER ENZYMES. Plan: PATIENT ALLOWED TO REMAIN ON DETOX UNIT FOR TIME BEING DUE TO ABOVE-MENTIONED ISSUES / CONCERNS. WEB CONSULTANT Wilbert IVERSON WILL MEET WITH PATIENT TO DISCUSS POSSIBLE ALTERNATIVE AFTERCARE OPTIONS. K-DUR TO BE CONTINUED FOR HYPOKALEMIA. REPEAT K LEVEL ORDERED FOR TOMORROW AM.
[2018-09-22] MEDS: POTASSIUM CHLORIDE TABS 20 MEQ TABLET.ER (FP) PO SCH (17:24)
[2018-09-22] MEDS ORDERED: METOPROLOL TARTRATE 25 MG TABLET (FP) PO ONE (19:00)
[2018-09-22] MEDS: traZODone HCL 50 MG TABLET (FP) PO SCH (23:14)
[2018-09-22] MEDS: THIAMINE HCL 100 MG TABLET (FP) PO SCH (23:15)
[2018-09-23] MEDS: INSULIN SLIDING SCALE (NOVOLOG) 1 VIAL SQ SCH (07:28)
[2018-09-23 09:09] VITALS: BP 83/54; PULSE 92; TEMP 97.5
[2018-09-23] MEDS: POTASSIUM CHLORIDE TABS 20 MEQ TABLET.ER (FP) PO SCH (10:51)
[2018-09-23] MEDS: CLOPIDOGREL BISULFATE 75 MG TABLET (FP) PO SCH (10:51)
[2018-09-23] MEDS: PRENATAL VITAMINS W/ FOLIC ACID TABLET (FP) PO SCH (10:52)
[2018-09-23] MEDS: ASPIRIN 81 MG CHEWABLE TABLETS PO SCH (10:52)
[2018-09-23] MEDS: CYANOCOBALAMIN 1,000 MCG TABLET (FP) PO SCH (10:52)
--- NOTE | 2018-09-23 15:32 | DS ---
[facility] Detox Discharge Summary Admission Date: 09/18/18 Discharge Date: 09/23/18 - History Present History: Alcohol Dependence Additional Comments: 58 years old male admitted on 09/18/18 for alcohol withdrawal stabilization completed detox regimen aftercare patient declined patient preferred go home that he has the house ontiveros with him upon admission patient is alert no acute distress had breakfast and lunch change clothing independently denies dizziness ambulating with cane steady gait transportation arranged and arrived Pertinent Past History: patient agrees to follow up with his primary care provider and follow up with his diabetes - Physical Exam Results Vital Signs: Vital Signs Temperature 97.5 F L 09/23/18 09:09 Pulse Rate 92 H 09/23/18 09:09 Respiratory Rate 18 09/23/18 09:09 Blood Pressure 83/54 L 09/23/18 09:09 O2 Sat by Pulse Oximetry (%) Pertinent Admission Physical Exam Findings: alcohol withdrawal sx Laboratory Last Values WBC 4.3 K/mm3 (4.0-10.0) 09/19/18 07:00 RBC 5.22 M/mm3 (4.00-5.60) 09/19/18 07:00 Hgb 16.4 GM/dL (11.7-16.9) 09/19/18 07:00 Hct 46.4 % (35.4-49) 09/19/18 07:00 MCV 88.7 fl (80-96) 09/19/18 07:00 MCH 31.3 pg (25.7-33.7) 09/19/18 07:00 MCHC 35.3 g/dl (32.0-35.9) 09/19/18 07:00 RDW 15.0 % (11.9-15.9) 09/19/18 07:00 Plt Count 95 K/MM3 (134-434) L D 09/19/18 07:00 MPV 9.1 fl (7.5-11.1) D 09/19/18 07:00 Platelet Comment No clumping noted 09/19/18 07:00 Sodium 131 mmol/L (136-145) L 09/19/18 07:00 Potassium 3.7 mmol/L (3.5-5.1) 09/23/18 08:00 Chloride 92 mmol/L (98-107) L 09/19/18 07:00 Carbon Dioxide 28 mmol/L (21-32) 09/19/18 07:00 Anion Gap 11 MMOL/L (8-16) 09/19/18 07:00 BUN 10 mg/dL (7-18) 09/19/18 07:00 Creatinine 0.9 mg/dL (0.55-1.3) 09/19/18 07:00 Creat Clearance w eGFR > 60 (>60) 09/19/18 07:00 Random Glucose 161 mg/dL (74-106) H 09/19/18 07:00 POC Glucometer 118 UNITS (80-120) 09/23/18 11:51 Calcium 8.4 mg/dL (8.5-10.1) L 09/19/18 07:00 Total Bilirubin 0.9 mg/dL (0.2-1) 09/21/18 11:45 Direct Bilirubin 0.4 mg/dL (0.0-0.2) H 09/21/18 11:45 AST 197 U/L (15-37) H 09/21/18 11:45 ALT 158 U/L (13-61) H 09/21/18 11:45 Alkaline Phosphatase 154 U/L (45-117) H 09/21/18 11:45 Total Protein 7.2 g/dl (6.4-8.2) 09/21/18 11:45 Albumin 3.3 g/dl (3.4-5.0) L 09/21/18 11:45 RPR Titer Nonreactive (NONREACTIVE) 09/19/18 07:00 lab noted discuss ast elevation related to alcohol misuse - Treatment Hospital Course: Detox Protocol Followed, Detoxed Safely, Responded well, Discharged Condition Good, Rehab Referral Accepted Patient has Accepted a Rehab Referral to: community self help 12 step - Medication Discharge Medications: Ambulatory Orders metFORMIN HCL [Metformin HCl] 500 mg PO BID #30 tablet 09/23/18 - Diagnosis (1) Alcohol dependence with uncomplicated withdrawal Status: Acute (2) Use of cane as ambulatory aid Status: Chronic - AMA Did Patient Leave Against Medical Advice: No
== END 2018-09-23 15:01 | disposition home or self-care (01) | DRG 897 ==
LOC: YASAS 11:03 → Y3N 15:19
PROVIDERS: ADMIT Surgery; ATTEND Surgery
PROC: HZ2ZZZZ Detoxification Services for Substance Abuse Treatment (ICD-10-PCS; principal; 2018-09-18)
DX: F10.230 Alcohol dependence with withdrawal, uncomplicated (principal); F17.210 Nicotine dependence, cigarettes, uncomplicated; E11.9 Type 2 diabetes mellitus without complications; E87.6 Hypokalemia; I10 Essential (primary) hypertension; R94.5 Abnormal results of liver function studies; R53.83 Other fatigue; R53.1 Weakness; R00.0 Tachycardia, unspecified; K70.10 Alcoholic hepatitis without ascites; R29.6 Repeated falls; R26.2 Difficulty in walking, not elsewhere classified; Z99.89 Dependence on other enabling machines and devices; Z95.1 Presence of aortocoronary bypass graft; S50.312A Abrasion of left elbow, initial encounter; W18.39XA Other fall on same level, initial encounter; Z91.81 History of falling; Y93.89 Activity, other specified; Y92.238 Other place in hospital as the place of occurrence of the external cause
CPT/HCPCS: 36415; 70450-TC; 80053; 80076; 82962; 84132; 85027; 86593; 93005; 93010; 99282-25

== ENCOUNTER 2018-09-20 00:48 | Emergency (ER) | payer OTHER ==
--- NOTE | 2018-09-20 01:03 | PDOC ---
Attending Attestation - HPI HPI: 09/20/18 01:16 The patient is a 58 year old male with a significant past medical history of depression, anxiety and etoh dependence who presents to the emergency department via EMS from [facility] for an unwitnessed fall earlier today. The patient denies any injury but endorses falling 2 times today. The patient states that he experiences some dizziness sometimes. He also reports some diarrhea with his complaints. The patient denies any other symptoms or complaints. Other patient history is limited. <Que Brady - Last Filed: 09/20/18 01:16> - Resident Resident Name: Betty Boyle - ED Attending Attestation I have performed the following: I have examined & evaluated the patient, The case was reviewed & discussed with the resident, I agree w/resident's findings & plan, Exceptions are as noted - Physicial Exam PE: 09/20/18 01:36 Patient is awake and alert, nontoxic-appearing, in no distress from: GCS-15 nc, atr neck: suypple, no mildine ttp, no deform perrla, eomi cta rrr Abdomen soft, nontender, and nondistended; Cranial nerves II through XII grossly intact; no pronation drift; moving all extremities symmetrically - Medical Decision Making 09/20/18 01:37 58-year-old male presents from [facility] inpatient facility for unwitnessed fall. Patient is noted to be mildly tachycardic and hypotensive. I suspect hypovolemia. Will administer IV fluids. Will obtain CT of head. Will reassess. Likely discharge. <Jamal Burns - Last Filed: 09/20/18 01:38> Attestations - Attestations 09/20/18 01:16 Documentation prepared by Que Brady, acting as medical clinic manager for Jamal Burns MD. <Que Brady - Last Filed: 09/20/18 01:16>
--- NOTE | 2018-09-20 01:12 | PDOC ---
History of Present Illness - General Stated Complaint: FALL - History of Present Illness Initial Comments: Ralph Vale is a 58yo man with a history of depression/anxiety and alcohol abuse who presents from detox following an unwitnessed fall. Mr Vale states that he has felt dizzy recently. He initially indicated that it happens when he stands up, but later reported that he feels dizzy when he drinks. He does report diarrhea recently as well as some vomiting yesterday. He otherwise denies any symptoms currently. He states that he fell twice today, but he denies any LOC or head injury. He is unable to give exact details regarding the circumstances of the fall other than to state that he was "trying to hold onto the wall" when he fell. Past History - Past Medical History Allergies/Adverse Reactions: Allergies Allergy/AdvReac Type Severity Reaction Status Date / Time No Known Allergies Allergy Verified 09/20/18 01:20 Home Medications: Ambulatory Orders metFORMIN HCL [Metformin HCl] 500 mg PO BID 09/18/18 Asthma: No Cancer: No Cardiac Disorders: No CVA: No COPD: No CHF: No Dementia: No Diabetes: No GI Disorders: No Disorders: No HTN: No Hypercholesterolemia: No Kidney Stones: No Seizures: No Thyroid Disease: No - Surgical History Abdominal Surgery: No Appendectomy: No Cardiac Surgery: No Cholecystectomy: No Lung Surgery: No Neurologic Surgery: No Orthopedic Surgery: No - Reproductive History Testicular Surgery: No - Suicide/Smoking/Psychosocial Hx Smoking History: Current every day smoker Have you smoked in the past 12 months: No Number of Cigarettes Smoked Daily: 8 'Breaking Loose' booklet given: 06/18/18 Hx Alcohol Use: Yes Drug/Substance Use Hx: No Substance Use Type: Alcohol Hx Substance Use Treatment: Yes Review of Systems - Review of Systems Comments:: Could not obtain. *Physical Exam - Physical Exam Comments: General: Comfortable, no acute distress HEENT: PERRL, EOMI, voice normal, normal neck ROM, no posterior neck pain. No swelling, ecchymosis, erythema, laceration/abrasion, or other sign of injury. Cards: RRR, no murmur appreciated Pulm: Comfortable on room air, clear to auscultation bilaterally Abd: Soft, nontender, nondistended Ext: Atraumatic. No LE edema. ROM intact. Strength 5/5 and equal bilaterally Vasc: Extremities WWP. Palpable radial and pedal pulses bilaterally Skin: Normal color, no rashes or lesions Neuro: A&Ox3, CN grossly intact, normal speech, motor/sensory grossly intact and symmetric Psych: Mood appropriate to situation Medical Decision Making - Medical Decision Making 09/20/18 01:15 Ralph Vale is a 58yo man with a PMH of depression/anxiety and alcohol abuse who presents from [facility] following an unwitnessed fall. - HR low at 105/89. HR in 90's. Reports diarrhea for several days, may be mildly dehydrated. Not orthostatic; HR did not changed when changing from laying to sitting. Will give IVF - CT head ordered to r/o fracture or bleed. No obvious injury, deformity, swelling, or laceration noted on head, torso, or extremities during exam. 09/20/18 02:29 - CT completed. No acute abnormalities - EKG w/ sinus tachycardia HR 105, no ST changes - Vitals rechecked. BP 128/91, HR 93. - Will d/c back to [facility]. Discussed with Dr Burns. Betty Boyle PGY1 *DC/Admit/Observation/Transfer Diagnosis at time of Disposition: Fall - Discharge Dispostion Disposition: HOME Condition at time of disposition: Stable Decision to Admit order: No - Referrals Referrals: Zulma Chen MD [Primary Care Provider] - - Patient Instructions Printed Discharge Instructions: How to Prevent Falls Additional Instructions: Discharge Instructions: You were seen in the emergency department following a fall. You had a CT of your head to make sure there was no injury, and there was no fracture or bleeding found. Your blood pressure was noted to be slightly low, and you were given IV fluids. Your blood pressure came back up to normal.Please make sure you are drinking plenty of fluids and staying well hydrated. Continue to take all of your medications as prescribed. You will be transferred back to detox. - Post Discharge Activity
[2018-09-20] MEDS ORDERED: SODIUM CHLORIDE 0.9% 500 ML INFUS.BAG IV ONE (01:18)
[2018-09-20 01:20] VITALS: BMI 28.2
[2018-09-20 01:35] VITALS: TEMP 97.5
[2018-09-20 02:30] VITALS: BP 128/91; PULSE 95
--- NOTE | 2018-09-20 14:01 | EKG ---
Test Reason : Blood Pressure : / mmHG Vent. Rate : 105 BPM Atrial Rate : 105 BPM P-R Int : 174 ms QRS Dur : 086 ms QT Int : 360 ms P-R-T Axes : 046 -27 048 degrees QTc Int : 475 ms SINUS TACHYCARDIA SEPTAL INFARCT (CITED ON OR BEFORE 18-SEP-2018) ABNORMAL ECG WHEN COMPARED WITH ECG OF 19-SEP-2018 11:22, NO SIGNIFICANT CHANGE WAS FOUND Confirmed by LEN AMADO, ELIA ([id number]) on 09/20/2018 2:00:57 PM Referred By: Confirmed By:ELIA HARRINGTON MD
== END 2018-09-20 03:20 | disposition home or self-care (01) ==
LOC: JER 00:48
DX: R42 Dizziness and giddiness (principal); W18.39XA Other fall on same level, initial encounter; Y93.89 Activity, other specified; Y92.238 Other place in hospital as the place of occurrence of the external cause; Y99.8 Other external cause status; F10.20 Alcohol dependence, uncomplicated; F41.8 Other specified anxiety disorders; F32.9 Major depressive disorder, single episode, unspecified; F17.210 Nicotine dependence, cigarettes, uncomplicated
CPT/HCPCS: 70450-TC; 93005; 93010; 99282-25